=== PATIENT | male | born 1970 | race Caucasian/White ===

== ENCOUNTER 2019-11-25 16:24 | Emergency (ER) | payer BC, OTHER ==
[2019-11-25] MEDS ORDERED: Ibuprofen TAB* 800 MG PO ONE (16:58)
--- NOTE | 2019-11-25 17:10 | ED ---
Upper Extremity Pain - HPI Summary HPI Summary: 49 year old male presents with left wrist injury today. He states that he fell off his snow mobile. He states he was wearing a helmet. Denies headache. No neck pain. no chest pain or shortness of breath. No abdominal pain. He has been able ambulate. His pain only on the left radius and near thumb. No elbow pain. No numbness or tingling. No previous fracture to the area. He works as an EMT. - History of Current Complaint Chief Complaint: EDExtremityUpper Stated Complaint: L WRIST INJURY PER PT Time Seen by Provider: 11/25/19 16:35 - Allergies/Home Medications Allergies/Adverse Reactions: Allergies Allergy/AdvReac Type Severity Reaction Status Date / Time No Known Allergies Allergy Verified 10/08/12 13:06 PMH/Surg Hx/FS Hx/Imm Hx Endocrine/Hematology History: Denies: Hx Diabetes, Hx Systemic Lupus Erythematosus Cardiovascular History: Denies: Hx Congestive Heart Failure, Hx Hypertension History: Denies: Hx Dialysis, Hx Renal Disease Musculoskeletal History: Denies: Hx Rheumatoid Arthritis - Cancer History Hx Chemotherapy: No - Surgical History Surgery Procedure, Year, and Place: vein surgery Right leg Infectious Disease History: No Infectious Disease History: Denies: Traveled Outside the [place] in Last 30 Days - Family History Known Family History: Positive: Non-Contributory - Social History Substance Use Type: Reports: None Smoking Status (MU): Never Smoked Tobacco Review of Systems Negative: Fever Negative: Chest Pain Negative: Shortness Of Breath Positive: Myalgia - left wrist injury All Other Systems Reviewed And Are Negative: Yes Physical Exam Triage Information Reviewed: Yes Vital Signs On Initial Exam: Initial Vitals Temp Pulse Resp BP Pulse Ox 97.9 F 90 19 158/108 96 11/25/19 16:26 11/25/19 16:26 11/25/19 16:26 11/25/19 16:26 11/25/19 16:26 Vital Signs Reviewed: Yes Appearance: Positive: Well-Appearing Skin: Positive: Warm, Dry Head/Face: Positive: Normal Head/Face Inspection Eyes: Positive: Normal, Conjunctiva Clear ENT: Positive: Pharynx normal Respiratory/Lung Sounds: Positive: Clear to Auscultation, Breath Sounds Present Cardiovascular: Positive: Normal, RRR Musculoskeletal: Positive: Limited @ - left wrist, Other - tendrness radius left wrist, good pulses, sensation grossly intact, tenderness snuff box Neurological: Positive: Normal Psychiatric: Positive: Normal Procedures - Sedation Patient Received Moderate/Deep Sedation with Procedure: No - Splinting left thumb Location: left wrist/thumb Hand-Made Type: orthoglass Splint: thumb spica Pre-Proc Neuro Vasc Exam: normal Post-Proc Neuro Vasc Exam: normal Splint Applied by Provider: [facility] - Vital Signs Vital Signs Temp Pulse Resp BP Pulse Ox 11/25/19 16:26 97.9 F 90 19 158/108 96 - Laboratory Lab Statement: Any lab studies that have been ordered have been reviewed, and results considered in the medical decision making process. - Radiology left wrist Radiology Interpretation Completed By: Radiologist Summary of Radiographic Findings: IMPRESSION: SOFT TISSUE SWELLING, NO FRACTURE IS SEEN. IF THE PATIENT'S SYMPTOMS PERSIST RECOMMEND FOLLOW-UP IMAGING. Course/Dx - Course Course Of Treatment: 49 year old male presents with left wrist injury today. He states that he fell off his snow mobile. He states he was wearing a helmet. Denies headache. No neck pain. no chest pain or shortness of breath. No abdominal pain. He has been able ambulate. His pain only on the left radius and near thumb. No elbow pain. No numbness or tingling. No previous fracture to the area. He works as an EMT. On exam tenderness over left radius and snuffbox. Neurovascular intact. x-ray shows no fracture. placed in a thumb spica splint due to snuff box tenderness. will have follow up with ortho. patient understand and agrees with plan. - Diagnoses Differential Diagnosis/HQI/PQRI: Positive: Fracture (Closed), Strain, Sprain Provider Diagnoses: Left wrist injury Discharge ED - Sign-Out/Discharge Documenting (check all that apply): Patient Departure - Discharge Plan Condition: Good Disposition: HOME Patient Education Materials: Wrist Injury (ED) Referrals: Austyn De Paz MD [Medical Doctor] - Rayray Holman MD [Primary Care Provider] - Additional Instructions: Keep splint on area and keep dry follow up with primary or ortho within 7 days Use ibuprofen or tyenlol for pain every 6 hours Ice, elevate Return to ED if develop any new or worsening symptoms - Billing Disposition and Condition Condition: GOOD Disposition: Home - Attestation Statements Provider Attestation: I was available for consult. This patient was seen by the JOEY. The patient was not presented to, seen by, or examined by me. Petros Desir MD
[2019-11-25 18:34] VITALS: BP 146/97
== END 2019-11-25 18:30 | disposition home or self-care (01) ==
LOC: ED 16:24
DX: S69.92XA Unspecified injury of left wrist, hand and finger(s), initial encounter (principal); V86.52XA Driver of snowmobile injured in nontraffic accident, initial encounter; Y92.9 Unspecified place or not applicable
CPT/HCPCS: 99282; A9270-GY